=== PATIENT | male | born 1980 | race Caucasian/White ===

== ENCOUNTER 2023-06-29 18:22 | Inpatient (IN) | payer OTHER ==
[2023-06-29 19:10] VITALS: BMI 24.1
[2023-06-29] MEDS ORDERED: MAGNESIUM HYDROX 2400MG/30ML ORAL SUSPENSION 30 ML CUP PO PRN (20:46)
[2023-06-29] MEDS ORDERED: BENZONATATE 200 MG CAPSULE PO PRN (20:46)
[2023-06-29] MEDS ORDERED: POLYETHYLENE GLYCOL (HEALTHYLAX) 3350 17 GM PACKET PO PRN (20:46)
[2023-06-29] MEDS ORDERED: IBUPROFEN 400 MG TABLET (FP) PO PRN (20:46)
[2023-06-29] MEDS ORDERED: ACETAMINOPHEN 325 MG TABLET (FP) PO PRN (20:46)
[2023-06-29] MEDS ORDERED: BENZOCAINE/MENTHOL (CHLORASEPTIC ) LOZENGE MM PRN (20:46)
[2023-06-29] MEDS ORDERED: NALOXONE HCL (KLOXXADO) 8 MG SPRAY NS PRN (20:46)
[2023-06-29] MEDS ORDERED: NICOTINE POLACRILEX 2 MG GUM BUC PRN (20:46)
[2023-06-29] MEDS ORDERED: guaiFENesin 600 MG TABLET.ER (FP) PO PRN (20:46)
[2023-06-29] MEDS ORDERED: MAG HYDROX/AL HYDROX/SIMETH 30 ML UNIT-DOSE CUP PO PRN (20:46)
[2023-06-29] MEDS ORDERED: ONDANSETRON *ODT* 4 MG TABLET SL PRN (20:46)
[2023-06-29] MEDS ORDERED: NALOXONE HCL 0.4 MG/ML VIAL IM PRN (20:46)
[2023-06-29] MEDS ORDERED: chlordiazePOXIDE HCL 25 MG CAPSULE ONE (21:22)
[2023-06-29] MEDS: chlordiazePOXIDE HCL 25 MG CAPSULE PO PRN (21:25)
[2023-06-29] MEDS: chlordiazePOXIDE HCL 25 MG CAPSULE PO SCH (22:32)
[2023-06-29] MEDS: THIAMINE 100 MG TABLET PO SCH (22:32)
[2023-06-29] MEDS: MELATONIN 5 MG TABLETS PO SCH (22:32)
[2023-06-29] MEDS: hydrOXYzine PAMOATE 25 MG CAPSULE (FP) PO PRN (22:32)
[2023-06-29] MEDS: METHOCARBAMOL 500 MG TABLET PO PRN (22:32)
[2023-06-29] MEDS: CLOTRIMAZOLE 1% CREAM TP SCH (23:33)
[2023-06-30] MEDS: methaDONE HCL 10 MG TABLET PO SCH (08:38)
[2023-06-30] MEDS: methaDONE 80 MG, methaDONE 20 MG PO SCH (08:45)
[2023-06-30] MEDS: LOPERAMIDE HCL 2 MG CAPSULE PO PRN (08:59)
[2023-06-30] MEDS: BACITRACIN 0.9 GM PACKET TP SCH (10:35)
[2023-06-30] MEDS: PRENATAL VITAMINS W/ FOLIC ACID TABLET (FP) PO SCH (10:35)
[2023-06-30] MEDS: NICOTINE 14 MG/24 HOURS TOPICAL PATCH TD SCH (10:36)
[2023-06-30 12:11] LABS: HEMATOCRIT 47.1 % (35.4-49); HEMOGLOBIN 15.8 GM/dL (11.7-16.9); MCH 29.1 pg (25.7-33.7); MCHC 33.5 g/dl (32.0-35.9); MEAN CELL VOLUME 86.9 fl (80-96); PLATELET COUNT 347 10^3/uL (134-434); RBC 5.43 M/mm3 (4.00-5.60); RDW 15.3 % (11.9-15.9); WHITE BLOOD COUNT 6.8 K/mm3 (4.0-10.0)
[2023-06-30 12:30] LABS: CHLORIDE 109 mmol/L (98-107); POTASSIUM 4.3 mmol/L (3.5-5.1); SODIUM 139 mmol/L (136-145)
[2023-06-30 12:39] LABS: ALBUMIN 2.9 g/dl (3.4-5.0)
[2023-06-30 12:40] LABS: ANION GAP 4 mmol/L (4-13); CO2 26 mmol/L (21-32); GLUCOSE,RANDOM 119 mg/dL (74-106)
[2023-06-30 12:42] LABS: CREATININE 0.7 mg/dL (0.55-1.3)
[2023-06-30 12:43] LABS: SGOT/AST 40 U/L (15-37); SGPT/ALT 45 U/L (13-61)
[2023-06-30 12:44] LABS: BILIRUBIN,TOTAL 0.3 mg/dL (0.2-1); TOT PROT 5.9 g/dl (6.4-8.2)
[2023-06-30 12:45] LABS: ALK PHOS 97 U/L (45-117)
[2023-06-30 13:07] LABS: HIV INTERPRETATION NEGATIVE (NEGATIVE)
[2023-06-30] MEDS: BISMUTH SUBSALICYLATE 524 MG/30 ML PO PRN (13:56)
[2023-06-30] MEDS: busPIRone HCL 5 MG TABLET PO SCH (22:10)
[2023-07-01] MEDS: chlordiazePOXIDE HCL 10 MG CAPSULE PO SCH (05:14)
[2023-07-01] MEDS ORDERED: ALBUTEROL SO4 HFA INHALER IH PRN (10:39)
[2023-07-01] MEDS: busPIRone HCL 10 MG TABLET (FP) PO ONE (12:43)
[2023-07-01 15:25] LABS: POTASSIUM 4.4 mmol/L (3.5-5.1)
[2023-07-01 15:27] LABS: BLOOD UREA NITROGEN 13.7 mg/dL (7-18)
[2023-07-01 15:30] LABS: CREATININE 0.7 mg/dL (0.55-1.3)
[2023-07-02] MEDS: chlordiazePOXIDE HCL 10 MG CAPSULE PO SCH (05:04)
[2023-07-02] MEDS: HYDROCORTISONE 1% TOPICAL CREAM 30 GM TUBE TP SCH (09:21)
[2023-07-02] MEDS: chlordiazePOXIDE HCL 10 MG CAPSULE PO PRN (11:57)
[2023-07-02] MEDS: MELATONIN 5 MG TABLETS PO SCH (22:05)
[2023-07-03] MEDS: chlordiazePOXIDE HCL 10 MG CAPSULE PO ONE (05:53)
[2023-07-03] MEDS: hydrOXYzine PAMOATE 25 MG CAPSULE (FP) PO SCH (15:52)
[2023-07-03] MEDS ORDERED: DIPHENOXYLATE 2.5/ATROPINE.025 1 COMBO TABLET PO PRN (20:00)
[2023-07-03] MEDS: DIPHENOXYLATE 2.5/ATROPINE.025 1 COMBO TABLET PO ONE (20:38)
[2023-07-03] MEDS: DICYCLOMINE HCL 10 MG CAPSULE PO PRN (21:52)
[2023-07-04] MEDS: IBUPROFEN 600 MG TABLET (FP) PO PRN (10:19)
[2023-07-04 12:51] VITALS: BP 137/95; PULSE 85; RESP 18; TEMP 96.8
== END 2023-07-04 18:28 | disposition other institution (70) | DRG 773 ==
LOC: YASAS 18:22 → Y3N 21:15
PROVIDERS: ADMIT Allergy & Immunology; ATTEND Surgery
PROC: HZ2ZZZZ Detoxification Services for Substance Abuse Treatment (ICD-10-PCS; principal; 2023-06-29)
DX: F10.230 Alcohol dependence with withdrawal, uncomplicated (principal); F13.230 Sedative, hypnotic or anxiolytic dependence with withdrawal, uncomplicated; F11.20 Opioid dependence, uncomplicated; F17.210 Nicotine dependence, cigarettes, uncomplicated; F19.24 Other psychoactive substance dependence with psychoactive substance-induced mood disorder; F41.9 Anxiety disorder, unspecified; J45.20 Mild intermittent asthma, uncomplicated; B35.3 Tinea pedis; R76.8 Other specified abnormal immunological findings in serum; Z86.19 Personal history of other infectious and parasitic diseases; Z28.310 Unvaccinated for COVID-19; Z28.9 Immunization not carried out for unspecified reason; Z59.01 Sheltered homelessness
CPT/HCPCS: 36415; 80048; 80053; 80305; 80307; 85027; 86593; 86780; 87338; 87389; 87811; 93005; 93010

== ENCOUNTER 2023-07-04 17:03 | Inpatient (IN) | payer OTHER ==
[2023-07-04] MEDS ORDERED: NALOXONE HCL 0.4 MG/ML VIAL IVPUSH PRN (19:09)
[2023-07-04] MEDS ORDERED: POLYETHYLENE GLYCOL (HEALTHYLAX) 3350 17 GM PACKET PO PRN (19:09)
[2023-07-04] MEDS ORDERED: BENZONATATE 200 MG CAPSULE PO PRN (19:09)
[2023-07-04] MEDS ORDERED: IBUPROFEN 400 MG TABLET (FP) PO PRN (19:09)
[2023-07-04] MEDS ORDERED: ACETAMINOPHEN 325 MG TABLET (FP) PO PRN (19:09)
[2023-07-04] MEDS ORDERED: NALOXONE (NYS OPIOID OVERDOSE PROGRAM) 4 MG/0.1 ML SPRAY NS PRN (19:09)
[2023-07-04] MEDS ORDERED: guaiFENesin 600 MG TABLET.ER (FP) PO PRN (19:09)
[2023-07-04] MEDS ORDERED: BENZOCAINE/MENTHOL (CHLORASEPTIC ) LOZENGE MM PRN (19:09)
[2023-07-04] MEDS ORDERED: MAGNESIUM HYDROX 2400MG/30ML ORAL SUSPENSION 30 ML CUP PO PRN (19:09)
[2023-07-04] MEDS ORDERED: NICOTINE POLACRILEX 2 MG GUM BUC PRN (19:09)
[2023-07-04] MEDS ORDERED: ALBUTEROL SO4 HFA INHALER IH PRN (19:10)
[2023-07-04] MEDS: IBUPROFEN 600 MG TABLET (FP) PO PRN (19:30)
[2023-07-04] MEDS: METHOCARBAMOL 500 MG TABLET PO PRN (19:30)
[2023-07-04] MEDS: DIPHENOXYLATE 2.5/ATROPINE.025 1 COMBO TABLET PO PRN (19:30)
[2023-07-04] MEDS: busPIRone HCL 5 MG TABLET PO SCH (22:49)
[2023-07-04] MEDS: MELATONIN 5 MG TABLETS PO SCH (22:49)
[2023-07-04] MEDS: THIAMINE HCL 100 MG TABLET (FP) PO SCH (22:52)
[2023-07-04] MEDS: FLUTICASONE PROP 0.05% 16 GM NASAL SPRAY NS SCH (23:43)
[2023-07-05] MEDS: methaDONE 80 MG, methaDONE 20 MG PO SCH (07:42)
[2023-07-05] MEDS: methaDONE HCL 10 MG TABLET PO SCH (07:44)
[2023-07-05] MEDS: PRENATAL VITAMINS W/ FOLIC ACID TABLET (FP) PO SCH (09:37)
[2023-07-05] MEDS: LOPERAMIDE HCL 2 MG CAPSULE PO PRN (09:43)
[2023-07-05] MEDS: hydrOXYzine PAMOATE 25 MG CAPSULE (FP) PO PRN (10:22)
[2023-07-05] MEDS: AZITHROMYCIN 250 MG TABLET PO SCH (15:04)
[2023-07-05] MEDS: BISMUTH SUBSALICYLATE 524 MG/30 ML PO PRN (17:52)
[2023-07-06] MEDS ORDERED: ONDANSETRON *ODT* 4 MG TABLET SL PRN (08:36)
[2023-07-06] MEDS: busPIRone HCL 10 MG TABLET (FP) PO SCH (10:11)
[2023-07-06 11:25] LABS: POTASSIUM 4.2 mmol/L (3.5-5.1)
[2023-07-06 11:27] LABS: CALCIUM 9.5 mg/dL (8.5-10.1)
[2023-07-06 11:28] LABS: BLOOD UREA NITROGEN 14.9 mg/dL (7-18)
[2023-07-06 11:31] LABS: CREATININE 0.9 mg/dL (0.55-1.3)
[2023-07-06 11:32] LABS: TOT PROT 7.6 g/dl (6.4-8.2)
[2023-07-06 11:33] LABS: BILIRUBIN,TOTAL 0.7 mg/dL (0.2-1)
[2023-07-06 11:36] LABS: ALBUMIN 3.8 g/dl (3.4-5.0)
[2023-07-07] MEDS ORDERED: LOPERAMIDE HCL 2 MG CAPSULE PO PRN (12:09)
[2023-07-07 18:46] LABS: HIV INTERPRETATION NEGATIVE (NEGATIVE)
[2023-07-08] MEDS: MAG HYDROX/AL HYDROX/SIMETH 30 ML UNIT-DOSE CUP PO PRN (06:07)
[2023-07-08] MEDS: SIMETHICONE 80 MG TAB.CHEW (FP) PO PRN (21:41)
[2023-07-09] MEDS: busPIRone HCL 10 MG TABLET (FP) PO SCH (19:13)
[2023-07-09] MEDS: diphenhydrAMINE HCL 25 MG CAPSULE (FP) PO PRN (21:43)
[2023-07-10] MEDS ORDERED: cloNIDine HCL 0.1 MG TABLET PO PRN (08:25)
[2023-07-10] MEDS: ACYCLOVIR 400 MG TABLET PO SCH (21:32)
[2023-07-12] MEDS: HYDROCORTISONE 1% TOPICAL CREAM 30 GM TUBE TP PRN (07:10)
[2023-07-13] MEDS: AMMONIUM LACTATE 12% LOTION 225 GM BOTTLE TP PRN (06:11)
[2023-07-13] MEDS: CLOTRIMAZOLE 1% CREAM TP SCH (21:44)
[2023-07-14 07:02] VITALS: RESP 18
[2023-07-14] MEDS: LACTULOSE 20 GM/30 ML UDC (FOR ORAL USE ONLY) PO SCH (14:13)
[2023-07-14] MEDS: diphenhydrAMINE HCL 25 MG CAPSULE (FP) PO PRN (21:37)
[2023-07-16 06:51] VITALS: BP 143/77; PULSE 93; TEMP 97.9
== END 2023-07-16 19:10 | disposition left against medical advice (07) | DRG 770 ==
LOC: YASAS 17:03 → Y5N 17:05
PROVIDERS: ADMIT Allergy & Immunology; ATTEND Psychiatry & Neurology Pain Medicine
PROC: HZ42ZZZ Group Counseling for Substance Abuse Treatment, Cognitive-Behavioral (ICD-10-PCS; principal; 2023-07-04)
DX: F11.20 Opioid dependence, uncomplicated (principal); F10.20 Alcohol dependence, uncomplicated; F14.20 Cocaine dependence, uncomplicated; F17.210 Nicotine dependence, cigarettes, uncomplicated; F19.24 Other psychoactive substance dependence with psychoactive substance-induced mood disorder; E72.20 Disorder of urea cycle metabolism, unspecified; G47.00 Insomnia, unspecified; A60.01 Herpesviral infection of penis; B00.9 Herpesviral infection, unspecified; B35.3 Tinea pedis; L85.3 Xerosis cutis; Z86.59 Personal history of other mental and behavioral disorders; Z59.01 Sheltered homelessness; F91.8 Other conduct disorders; Z91.199 Patient's noncompliance with other medical treatment and regimen due to unspecified reason
CPT/HCPCS: 36415; 80053; 82140; 82962; 83036; 86695; 86696; 87086; 87389; 87491; 87591; 87661

== ENCOUNTER 2023-08-23 18:42 | Emergency (ER) | payer OTHER ==
[2023-08-23 19:05] VITALS: BP 116/77; PULSE 60; RESP 18; TEMP 98; BMI 25.7
[2023-08-23] MEDS ORDERED: DIPHTH,PERTUSS(ACELL),TET 0.5 ML DISP.SYRIN IM ONE (19:46)
[2023-08-23] MEDS: DIPHTH,PERTUSS(ACELL),TET 0.5 ML DISP.SYRIN IM ONE (20:06)
== END 2023-08-23 22:52 | disposition home or self-care (01) ==
LOC: JER 18:42
DX: S09.90XA Unspecified injury of head, initial encounter (principal); S40.811A Abrasion of right upper arm, initial encounter; S40.812A Abrasion of left upper arm, initial encounter; S80.811A Abrasion, right lower leg, initial encounter; S80.812A Abrasion, left lower leg, initial encounter; S90.811A Abrasion, right foot, initial encounter; M54.2 Cervicalgia; F11.20 Opioid dependence, uncomplicated; W19.XXXA Unspecified fall, initial encounter
CPT/HCPCS: 70450-TC; 72125-TC; 99284-25